=== PATIENT | male | born 1970 | race Caucasian/White ===

== ENCOUNTER 2023-11-02 10:52 | Outpatient (RCR) | payer OTHER, SELFPAY ==
[2023-11-02 11:51] LABS: Creatinine* 0.8 mg/dL (0.5-1.5); Estimated Glomerular Filt Rate 106 ml/min
== END 2024-04-30 23:59 | disposition home or self-care (01) ==
LOC: CCIC 10:52
PROVIDERS: Visit Provider Nurse Practitioner
DX: C09.9 Malignant neoplasm of tonsil, unspecified (principal)
CPT/HCPCS: 36415; 82565; 99211